=== PATIENT | female | born 1960 | race Caucasian/White ===

== ENCOUNTER → 2016-10-31 16:59 | Outpatient (CLI) | payer MEDICAID ==
[2015-06-20 07:35] VITALS: BMI 35.8
[~2016-10-31 16:59] MED LIST: ARMOUR THYROID PO; ASPIRIN325 MG PO; CELEXA20 MG PO; EC-NAPROSYN500 MG PO; HYDRALAZINE PO; TOPAMAX50 MG PO; ULTRAM50 MG PO
== END | disposition home or self-care (01) ==
LOC: D.MAMMO 13:30
DX: Z12.31 Encounter for screening mammogram for malignant neoplasm of breast (principal)

== ENCOUNTER 2017-03-24 10:45 | Outpatient (CLI) | payer MEDICAID ==
[~2017-03-24] VITALS: Ht 154.9 cm; Wt 81.8 kg
--- NOTE | ~2017-03-24 | OP ---
PATIENT NAME: REENA KULKARNI MEDICAL RECORD: [id number] :56 LOCATION:D.CAT ADMISSION DATE: SURGEON: KAYLA BARRIOS M.D. DATE OF OPERATION: 03/24/2017 REFERRING PHYSICIAN: Jonny Brunner MD PROCEDURES PERFORMED: 1. Selective coronary angiography. 2. Left heart catheterization with ventriculogram. 3. PTCA and stent placed in the LAD. INDICATION: A 56-year-old presents with abnormal stress test revealing anterior wall ischemia. EQUIPMENT USED: Diagnostic 5-Malagasy Mitch catheter. INTERVENTION: A 6-Malagasy XB LAD guide, BMW guidewire, 3.0 x 18 mm Resolute stent. TECHNIQUE: A 6-Malagasy sheath was inserted in retrograde fashion in the right radial artery. Next, selective coronary angiography was performed in standard views using a 5-Malagasy Pawhuska catheter. Left heart catheterization was performed using Pawhuska catheter as well. CORONARY ANATOMY: 1. Left main: Left main trunk is moderate in caliber. It gives rise to the LAD and circumflex. There is no obstruction. 2. LAD: This vessel has been seen in the proximal segment. There is a focal 90% in-stent restenosis seen. 3. Circumflex: This vessel is moderate in caliber. It has a smooth 40% stenosis in the mid segment. 4. Right coronary: This vessel is moderate in caliber and dominant. The mid vessel has been stented. The stent is widely patent. There is no evidence of restenosis. 5. Left ventricle: Left ventricle is normal in size and function. No wall motion abnormalities are seen. Estimated ejection fraction is 55%. DESCRIPTION OF INTERVENTION: A 100 units per kilogram of heparin was infused. A 6-Malagasy XB LAD guide was advanced and engaged in the left main coronary artery. Next, a BMW guide wire was placed in the distal LAD. A 3.0 x 18 mm Resolute stent was placed across the area of restenosis. The stent was then deployed at 12 atmospheres. Injection shows stent to be widely patent with 0% residual stenosis. There is marked improvement in distal flow. There is no compromise of the first diagonal branch. At this point, the wire and guide were removed. IMPRESSION: Successful percutaneous transluminal coronary angioplasty and stent in the LAD with 0% residual stenosis. TRANSINT:[id number] Voice Confirmation ID: [id number] DOCUMENT ID: [id number] OPERATIVE REPORT [id number] REENA KULKARNI TIMOTHY E M.D. CC: [id number] DICTATION DATE: 03/24/17 1346 PHYSICAL THERAPY NURSE: 03/24/172028 DEP CLI 03/24/17 [place] [id number] [place] [id number]
--- NOTE | ~2017-03-24 | HEMODYNAMI ---
PATIENT:REENA KULKARNI MEDICAL RECORD: [id number] : 56 LOCATION:[facility] ADMISSION DATE: 03/24/17 Generatedon:03/24/201713:45 Patient name: REENA KULKARNI Patient #: [id number] SSN: : 1960 Date of study: 03/24/2017 Page: Of Hemodynamic Procedure Report Patient Data Patient Demographics Procedure consent was obtained First Name: REENA Gender: Female Last Name: SHAD : 1960 [facility] Initial: S Age: 56 year(s) Patient #: [id number] Race: Additional ID: [id number] Contact details Address: [address] [place] [address] State: [place] City: [place] Zip code: [address] Past Medical History History of disease Date Diagnosis Comments CAD Allergies: No known allergies Admission Admission Data Admission Date: 03/24/2017 Admission Time: 10:45 Admit Source: Other Lab Results Lab Result Date: 03/24/2017 Lab Result Time: 0:00 Biochemistry Name Units Result Min Max BUN mg/dl 17 --(---*)-- 7 18 Creatinine mg/dl 0.7 --(*---)-- 0.6 1.3 CBC Name Units Result Min Max Hemoglobin g/dl 13.3 -*(----)-- 13.5 17.5 Procedure Procedure Types Cath Procedure Diagnostic Procedure [facility] w/Coronaries PCI Procedure Coronary Stent Initial Miscellaneous Procedures Moderate Sedation up to 15 minutes Procedure Description Procedure Date Procedure Date: 03/24/2017 Procedure Start Time: 13:19 Procedure End Time: 13:43 Procedure Staff Name Function iTm Berrios MD Performing Physician Lucas Luna RT Scrub Leidy Jackson RN Nurse Anita Sage RT Monitor Procedure Data Cath Procedure Fluoroscopy Diagnostic fluoroscopy Total fluoroscopy Time: 6.6 time: 6.6 min min Diagnostic fluoroscopy Total fluoroscopy dose: 248 dose: 248 mGy mGy Contrast Material Contrast Material Type Amount (ml) Isovue 300 107 Entry Location Entry Primary Successful Side Size Upsize Upsize Entry Closure Kruger ccessful Closure Location (Fr) 1 (Fr) 2 (Fr) Remarks Device Remarks Radial Right 6 Fr Mechanical tr band artery Short Compression Estimated blood loss: 10 ml Diagnostic catheters Device Type Used For End Catheter Placement Diagnostic Terumo 5Fr Ventriculography Hudson 110cm catheter Procedure Complications No complications Procedure Medications Medication Administration Route Dosage Oxygen NC 2 l/min Lidocaine 2% added to field 20 Heparin Flush Bag added to field 2 bags (1000units/500ml NS) 0.9% NaCl I.V. 100 ml/hr Versed I.V. 1 mg Fentanyl I.V. 50 mcg Radial Cocktail I.A. 1 syringe (Verapomil 2mg/Nitro 400mcg/Heparin 1500units) Versed I.V. 1 mg Fentanyl I.V. 50 mcg Heparin Bolus I.V. 8000 units Versed I.V. 0.5 mg Hemodynamics Rest HGB: 13.3 (g/dl) Heart Rate: 61 (bpm) Pressure Samples Time Site Value (mmHg) Purpose Heart Use Rate(bpm) 13:24 LV 112/6,19 Snapshot 64 13:24 LV 114/7,21 Snapshot 63 13:25 AO 118/75(92) Pullback 53 Gradients Valve Time Site Site 2 Mean SEP/DFP Peak To Heart Use 1 (mmHg) (sec/min) Peak Rate (mmHg) (bpm) Aortic 13:25 LV AO 20 5 53 118/75(92) Calculations Valve P-P Mean Valve Index Valve Source Name Gradient Area Flow (cm2) Aortic 20 20 Snapshots Pre Cath Intra NCS Post Cath Vital Signs Time Heart Resp SPO2 NIBP (mmHg) Rhythm Pain Sedation Rate (ipm) (%) Status Level (bpm) 12:57:15 55 18 99 133/65(102) NSR 0 (11) 10(A) , No pain 13:01:45 56 16 97 136/68(104) NSR 0 (11) 10(A) , No pain 13:07:23 56 15 100 128/62(100) NSR 0 (11) 10(A) , No pain 13:11:47 57 16 100 130/72(112) NSR 0 (11) 10(A) , No pain 13:16:05 61 16 96 109/61(86) NSR 0 (11) 10(A) , No pain 13:21:13 59 18 95 120/69(104) NSR 0 (11) 9(A) , No pain 13:25:21 131 19 94 106/81(95) NSR 0 (11) 9(A) , No pain 13:29:41 64 17 97 108/53(78) NSR 0 (11) 9(A) , No pain 13:34:03 62 17 98 112/51(81) NSR 0 (11) 9(A) , No pain 13:38:19 61 16 98 94/47(76) NSR 0 (11) 9(A) , No pain 13:42:35 62 17 99 110/53(88) NSR 0 (11) 10(A) , No pain Medications Time Medication Route Dose Verified Delivered Reason Note s Effectiveness by by 13:12:28 Oxygen NC 2 l/min Tim Buffie used for Ciro Jackson RN procedure 13:12:35 Lidocaine 2% added 20ml Tim Tim for local to vial Ciro Berrios MD anesthetic field 13:12:41 Heparin Flush added 2 bags Tim Tim used for Bag to Ciro Berrios MD procedure (1000units/500ml field NS) 13:12:51 0.9% NaCl I.V. 100 Tim Buffie Per physician ml/hr Ciro Jackson RN 13:14:57 Versed I.V. 1 mg Tim Buffie for sedation Ciro Jackson RN 13:15:04 Fentanyl I.V. 50 mcg Tim Buffie for sedation Ciro Jackson RN 13:21:17 Radial Cocktail I.A. 1 Tim Tim for (Verapomil syringe Ciro Berrios MD vasodilation 2mg/Nitro 400mcg/Heparin 1500units) 13:21:26 Versed I.V. 1 mg Tim Buffie for sedation Ciro Jackson RN 13:21:30 Fentanyl I.V. 50 mcg Tim Buffie for sedation Ciro Jackson RN 13:32:30 Heparin Bolus I.V. 8000 Tim Buffie for veri fied units Ciro Jackson RN anticoagulation with dr berrios' 13:35:54 Versed I.V. 0.5 mg Tim Buffie for sedation Ciro Jackson RN Procedure Log Time Note 12:48:26 Admit Source: Other 12:48:51 Diagnostic Cath status Elective 12:48:54 Anita Sage RT(R) sent for patient. Start room use. 12:48:55 Time tracking: Regular hours 12:49:00 Plan of Care:Hemodynamics will remain stable., Cardiac rhythm will remain stable., Comfort level will be maintained., Respiratory function will remain adequate., Patient/ family verbilizes understanding of procedure., Procedure tolerated without complication., Recovers from procedure without complications.. 12:55:43 Patient received from Pre/Post Procedure Room to CCL 3 Alert and oriented. Tansferred to table in Supine position. 12:55:45 Warm blankets applied, and vadim hugger turned on for patient comfort. 12:55:45 Correct patient and procedure confirmed by team. 12:55:47 Signed procedure consent form obtained from patient. 12:55:51 ECG and BP/O2 sat monitors applied to patient. 12:55:55 Vital chart was started 12:56:04 Baseline sample Acquired. 12:56:09 Rhythm: sinus rhythm 12:56:11 Full Disclosure recording started 12:56:12 Baseline sample Acquired. 13:07:05 H&P Date Dictated: 03/24/2017 Within 30 days and on chart., H&P Addendum completed by physician on day of procedure. (MUST COMPLETE FOR ALL OUTPATIENTS). 13:07:07 Pre-procedure instructions explained to patient. 13:07:09 Family in waiting room. 13:07:11 Patient NPO since Midnight. 13:07:24 Patient allergic to No known allergies 13:07:29 Is patient on blood thinner?Yes 13:07:32 ACC The patient was administered the following blood thiners within the last 24 hours: ACCPlavix 13:07:36 Patient diabetic? No. 13:07:40 Snore? Yes 13:07:42 Sleep apnea? No 13:07:54 Dentures? No ? 13:07:55 Dentures? Yes ? 13:08:04 Patient pain scale 0/10 ?. 13:08:12 IV patent on arrival in left forearm with 0.9% NaCl at [facility]. 13:11:21 Lab Result : BUN 17 mg/dl 13:11:21 Lab Result : Hemoglobin 13.3 g/dl 13:11:21 Lab Result : Creatinine 0.7 mg/dl 13:11:25 Lab results completed and on chart. 13:11:31 Right Radial & Right Groin area was prepped with chlora-prep and draped in sterile fashion 13:11:32 Alarms reviewed by Inocencio Velasco 13:11:34 Physician paged 13:11:39 Physician arrived 13:11:40 --------ALL STOP TIME OUT------ 13:11:41 Final Timeout: patient, procedure, and site verified with staff and physician. All members of the team are in agreement. 13:11:43 Right Radial & Right Groin site verified by team. 13:11:48 Physical assessment completed. ASA score P 2 - A patient with mild systemic disease as per Tim Berrios MD. 13:11:52 Sedation plan: IV Moderate Sedation Versed, Fentanyl 13:12:28 Oxygen 2 l/min NC was administered by Leidy Jackson RN; used for procedure; 13:12:35 Lidocaine 2% 20ml vial added to field was administered by Tim Berrios MD; for local anesthetic; 13:12:41 Heparin Flush Bag (1000units/500ml NS) 2 bags added to field was administered by Tim Berrios MD; used for procedure; 13:12:51 0.9% NaCl 100 ml/hr I.V. was administered by Leidy Jackson RN; Per physician; 13:14:57 Versed 1 mg I.V. was administered by Leidy Jackson RN; for sedation; 13:15:04 Fentanyl 50 mcg I.V. was administered by Leidy Jackson RN; for sedation; 13:18:33 Use device set Radial Dx 13:18:34 Acist Syringe opened to sterile field. 13:18:34 Medline Cath Pack opened to sterile field. 13:18:35 Bag Decanter opened to sterile field. 13:18:35 Terumo 6Fr Slender Glidesheath opened to sterile field. 13:18:36 St Afshin 260cm J .035 wire opened to sterile field. 13:18:36 Acist Hand Control opened to sterile field. 13:18:37 Acist Manifold opened to sterile field. 13:18:37 Tegaderm 4 x 4 opened to sterile field. 13:18:41 Procedure started. 13:19:02 Local anesthetic to right radial artery with Lidocaine 2% by Tim Berrios MD.INITIAL ACCESS ONLY 13:19:47 A 6 Fr Short sheath was inserted into the Right Radial artery 13:21:17 Radial Cocktail (Verapomil 2mg/Nitro 400mcg/Heparin 1500units) 1 syringe I.A. was administered by Tim Berrios MD; for vasodilation; 13:21:26 Versed 1 mg I.V. was administered by Leidy Jackson RN; for sedation; 13:21:27 J wire advanced. 13:21:30 Fentanyl 50 mcg I.V. was administered by Leidy Jackson RN; for sedation; 13:22:00 A Diagnostic Terumo 5Fr Hudson 110cm catheter was advanced over the wire and used for Ventriculography. 13:24:16 Terumo ANGLE 260cm glide wire opened to sterile field. 13:25:03 LV gram done using CARPIO 13:25:17 EF : 50 % 13:25:51 LCA angiography performed. 13:27:01 RCA angiography performed. 13:28:02 Catheter removed. 13:30:18 ReTargeter 6FR XBLAD 3.5 guide catheter opened to sterile field. 13:30:19 Elkins BMW Plymouth 2 J-tip 300cm 0.014 guide wir opened to sterile field. 13:30:19 Aurora Feint BasixCompak Inflation Kit opened to sterile field. 13:30:20 High Pressure Extension Tubing (Ciro) opened to sterile field. 13:30:38 Proceeding to intervention. 13:30:53 ACC PCI Site: pLAD has 80% stenosis. 13:31:04 6 Fr XBLAD 3.5 guide catheter was inserted over the wire 13:32:30 Heparin Bolus 8000 units I.V. was administered by Leidy Jackson RN; for anticoagulation; verified with dr berrios' 13:35:54 Versed 0.5 mg I.V. was administered by Leidy Jackson RN; for sedation; 13:39:36 Inflation Number: 1 A Medtronic Resolute 3.0 X 18 stent was prepped and advanced across the Prox LAD. The stent was deployed at 12 MAHAMED for 0:30 (min:sec). 13:40:36 Stent balloon re-inserted over wire. 13:40:57 Terumo TR Band Standard opened to sterile field. 13:41:37 Sheath removed intact; hemostasis achieved with Mechanical Compression to the Right Radial artery. 13:41:40 Procedure ended.(Physican Out) 13:42:07 Fluoroscopy time 06.60 minutes. 13:42:14 Fluoroscopy dose: 248 mGy 13:42:14 Flurop Dose total: 248 13:42:19 Contrast amount:Isovue 300 107ml. 13:42:21 Sharps counted by scrub and verified by R.N. 13:42:26 TR band inflated with 12cc of air. 13:42:29 Insertion/operative site no bleeding no hematoma. 13:42:45 Post right radial artery:stable 13:42:51 Post Procedure Pulses reassessed and unchanged 13:42:56 Post-procedure physical assessment completed. ASA score P 2 - A patient with mild systemic disease as per Tim Berrios MD. 13:43:00 Post procedure rhythm: unchanged. 13:43:03 Estimated blood loss: 10 ml 13:43:05 Post procedure instruction explained to patient.Patient verbalizes understanding. 13:43:12 Procedure type changed to Cath procedure, Diagnostic procedure, LHC, LHC w/Coronaries, PCI procedure, Coronary Stent Initial, Miscellaneous Procedures, Moderate Sedation up to 15 minutes 13:43:13 Procedure and supply charges have been captured, reviewed, submitted and are correct. 13:43:37 Procedure Complication : No complications 13:43:39 Vital chart was stopped 13:43:40 See physician's report for complete and final results. 13:43:42 Report given to Pre/Post Procedure Room. 13:43:45 Patient transfered to Pre/Post Procedure Room with Stretcher. 13:43:50 Procedure ended. 13:43:50 Full Disclosure recording stopped 13:43:55 End room use (Document Last) Intervention Summary Intervention Notes Time ActionType Lesion and Equipment Action# Pressure Duration Attributes Used 13:39:36 Place stent Prox LAD Medtronic 1 12 00:30 Resolute 3.0 X 18 stent Device Usage Item Name Manufacture Quantity Catalog Hospital Part Current Minimal Lot# / Number Charge Number Stock Stock Serial# Code Stephanie Brown 1 62161 [id number] 826019 307130 20 Syringe Medical Systems Inc Medline Cardinal 1 [id number] 665021 26432 631486 5 Cath Pack Health Bag Microtek 1 2001S 507302 83139 042960 5 [employer]. Terumo 6Fr Terumo 1 [id number] 663420 882793 835134 [address] St Afshin 1 290909 187528 416332 330579 30 260cm J .035 wire Acist Hand Acist 1 81243 527171 132252 674537 5 Control Medical Systems Inc Acist Acist 1 23431 303426 694571 411708 5 Manifold Medical Systems Inc Tegaderm 4 3M 1 [id number] 048661 025554 686824 5 x 4 Diagnostic Terumo 1 40-5013 896628 812136 119862 5 Terumo 5Fr Hudson 110cm catheter Terumo Terumo 1 [id number] 435792 413277 194006 5 ANGLE 260cm glide wire Cordis 6FR Cardinal 1 [id number] 609455 170923 620950 10 XBLAD 3.5 Health guide catheter Elkins BMW Elkins 1 [id number] 082742 419405 550840 5 Plymouth 2 Vascular J-tip 300cm 0.014 guide wir Merit Merit 1 [id number] 042443 144860 006880 15 Crowdrally Medical Inflation Kit High Merit 1 [id number] 961359 85730 011196 10 Pressure Medical Extension Tubing (Berrios) Medtronic Medtronic 1 [id number] 676199 847926 6 [id number] Resolute 3.0 X 18 stent Terumo TR Terumo 1 [id number] 788348 752901 316222 40 Band Standard Signature Audit Spencer Stage Time Signature Unsigned Intra-Procedure 03/24/2017 Anita Sage 1:45:40 PM RT(R) Signatures Monitor : Anita Sage Signature : RT Date : Time : [address] [address]
[2017-03-24] MEDS ORDERED: PLAVIX75 MG PO (11:11)
[2017-03-24] MEDS ORDERED: BUSPAR 15 MG TA15 MG PO (11:12)
[2017-03-24] MEDS ORDERED: PRAVACHOL40 MG PO (11:13)
[2017-03-24] MEDS ORDERED: LISINOPRIL-HCTZ1 T11 PO (11:13)
[2017-03-24 11:15] VITALS: BP 125/70; Ht 154.9 cm; Wt 81.8 kg
[2017-03-24 11:24] LABS: BASOPHILS 0.3 % (0-2); EOSINOPHILS 2.1 % (0-7); HEMATOCRIT 39.4 % (36.0-48.0); HEMOGLOBIN 13.3 g/dL (12-16); IMMATURE GRANULOCYTES 0.2 % (0-5); LYMPHOCYTES 27.3 % (15-50); MCH 30.9 pg (26.0-34.0); MCHC 33.8 g/dL (31.0-37.0); MCV 91.6 fL (80.0-100.0); MEAN PLATELET VOLUME 9.9 fL (7.4-10.4); MONOCYTES 7.5 % (2-11); NEUTROPHILS 62.6 % (40-80); PLATELET COUNT 215 10x3/uL (130-400); RDW 12.8 % (11.5-14.5); WBC 6.2 10x3/uL (4.8-10.8)
[2017-03-24 11:40] LABS: CALC OSMOLALITY 279 mosm/kg (275-300); CALCIUM 9.2 mg/dL (8.5-10.1); CARBON DIOXIDE 25.8 mmol/L (21.0-32.0); CHLORIDE - SERUM 103 mmol/L (98-107); CREATININE - SERUM 0.7 mg/dL (0.6-1.3); GLUCOSE 99 mg/dL (74-106); POTASSIUM - SERUM 3.8 mmol/L (3.5-5.1); SODIUM 139 mmol/L (136-145); UREA NITROGEN 17 mg/dL (7-18); eGFR NON AFRICAN AMERICAN > 90 mL/min (90-120)
--- NOTE | 2017-03-24 14:15 | NUR ---
RESTING WITH EYES CLOSED, RIGHT WRIST CDI, NO BLEEDING NOTED
--- NOTE | 2017-03-24 14:45 | NUR ---
NO CHANGES NOTED, TR BAND INTACT
--- NOTE | 2017-03-24 17:40 | NUR ---
2CC AIR OUT OF TR BAND- NO BLEEDING
--- NOTE | 2017-03-24 18:00 | NUR ---
3CC AIR OUT TR BAND- NO BLEEDING
--- NOTE | 2017-03-24 18:45 | NUR ---
TR BAND OFF- BAND AID APPLIED, NO HEMATOMA OR BLEEDING NOTED AT SITE, IV D'C WITH CATH TIP INTACT, WRITTEN AND VERBAL INSTRUCTIONS GIVEN TO PT AND SISTER-VERBAL UNDERSTANDING NOTED.
--- NOTE | 2017-03-24 19:00 | NUR ---
D'C HOME WITH SISTER VIA WC TO PRIVATE CAR. RIGHT WRIST CDI
== END 2017-03-24 19:00 | disposition home or self-care (01) ==
LOC: D.CATH 10:45
PROVIDERS: Internal Medicine Cardiovascular Disease
DX: I25.10 Atherosclerotic heart disease of native coronary artery without angina pectoris (principal); Z95.5 Presence of coronary angioplasty implant and graft; Z86.73 Personal history of transient ischemic attack (TIA), and cerebral infarction without residual deficits; I10 Essential (primary) hypertension

== ENCOUNTER 2018-09-17 14:14 | Emergency (ER) | payer MEDICAID ==
[~2018-09-17] VITALS: Ht 154.9 cm; Wt 74.5 kg
[~2018-09-17 14:14] MED LIST changes: +BUSPAR 15 MG TA15 MG PO; +LISINOPRIL-HCTZ1 T11 PO; +PLAVIX75 MG PO; +PRAVACHOL40 MG PO
[2018-09-17 14:44] VITALS: Ht 154.9 cm; Wt 74.5 kg
[2018-09-17] MEDS ORDERED: NORCO 10-325 TA1 TAB PO (14:46)
[2018-09-17] MEDS ORDERED: TORADOL10 MG PO (18:59)
[2018-09-17] MEDS ORDERED: ROBAXIN500 MG PO (18:59)
[2018-09-17 19:17] VITALS: BP 164/84
== END 2018-09-17 19:17 | disposition home or self-care (01) ==
LOC: D.ER 14:14
DX: M54.12 Radiculopathy, cervical region (principal); M48.32 Traumatic spondylopathy, cervical region; Z86.73 Personal history of transient ischemic attack (TIA), and cerebral infarction without residual deficits; I10 Essential (primary) hypertension

== ENCOUNTER → 2018-09-25 14:25 | Outpatient (CLI) | payer MEDICARE ==
[2018-09-17 14:44] VITALS: BMI 31.0
[~2018-09-25 14:25] MED LIST changes: +NORCO 10-325 TA1 TAB PO; +ROBAXIN500 MG PO; +TORADOL10 MG PO
== END | disposition home or self-care (01) ==
LOC: D.MRI 14:25
DX: M54.12 Radiculopathy, cervical region (principal)

== ENCOUNTER 2019-09-22 11:04 | Outpatient (CLI) | payer MEDICARE, MEDICAID ==
[~2019-09-22] VITALS: Ht 154.9 cm; Wt 81.8 kg
--- NOTE | ~2019-09-22 | HEMODYNAMI ---
PATIENT:REENA KULKARNI MEDICAL RECORD: [id number] : 56 LOCATION:[facility] ADMISSION DATE: 09/22/19 Generatedon:09/22/201916:05 Patient name: REENA KULKARNI Patient #: [id number] SSN: [id number] : 1960 Date of study: 09/22/2019 Page: Of Hemodynamic Procedure Report Patient Data Patient Demographics Procedure consent was obtained First Name: REENA Gender: Female Last Name: SHAD : 1960 Middle Initial: BIPIN Age: 59 year(s) Patient #: [id number] Race: SSN: [id number] Additional ID: [id number] Contact details [address]: [address] [place] [address] State: [place] City: [place] Zip code: [address] Past Medical History History of disease Date Diagnosis Comments CAD Allergies: No known allergies Admission Admission Data Admission Date: 09/22/2019 Admission Time: 11:04 Arrival Date: 09/22/2019 Arrival Time: 14:00 Admit Source: Other Insurance Payor: Medicare [facility] #: [id number] Height (in.): 61.02 BSA: 1.81 (m2) Height (cm.): 155 BMI: 34.13 (kg/m2) Weight (lbs.): 180.78 Weight (kg.): 82 Lab Results Lab Result Date: 09/22/2019 Lab Result Time: 0:00 Biochemistry Name Units Result Min Max BUN mg/dl 15 --(--*-)-- 7 18 Creatinine mg/dl 0.7 --(*---)-- 0.6 1.3 eGFR ml/min 90 --(*---)-- 90 120 NONAFRICAN CBC Name Units Result Min Max Hemoglobin g/dl 14.1 --(*---)-- 13.5 17.5 Procedure Procedure Types Cath Procedure Diagnostic Procedure LHC LHC w/Coronaries Procedure Description Procedure Date Procedure Date: 09/22/2019 Procedure Start Time: 15:43 Procedure End Time: 16:03 Procedure Staff Name Function Tim Tanner MD Performing Physician Salud Rutledge RT Scrub Andrzej Santos RN Nurse Geena Burns RT Monitor Skylar Kaur RT Monitor Indication Angina Procedure Data Cath Procedure Fluoroscopy Diagnostic fluoroscopy Total fluoroscopy Time: 1.7 time: 1.7 min min Diagnostic fluoroscopy Total fluoroscopy dose: 544 dose: 544 mGy mGy Contrast Material Contrast Material Type Amount (ml) Isovue 370 68 Entry Location Entry Primary Successful Side Size Upsize Upsize Entry Closure Succes sful Closure Location (Fr) 1 (Fr) 2 (Fr) Remarks Device Remarks Femoral Right 5 Fr Exoseal artery Estimated blood loss: 5 ml Diagnostic catheters Device Type Used For End Catheter Placement MULTIPACK JL 4.0 5Fr Procedure catheter MULTIPACK 3DRC 5Fr Procedure catheter MULTIPACK Pigtail 5 Fr Procedure catheter Procedure Complications No complications Procedure Medications Medication Administration Route Dosage 0.9% NaCl I.V. 100 ml/hr Oxygen etCO2 Nasal cannula 2 l/min Heparin Flush Bag added to field 2 bags (1000units/500ml NS) Lidocaine 2% added to field 20 Versed I.V. 1 mg Fentanyl I.V. 50 mcg Versed I.V. 0.5 mg Fentanyl I.V. 25 mcg Hemodynamics Rest BSA: 1.81 (m2) HGB: 14.1 (g/dl) O2 Consumption: Estimated: 162.25 (ml/min) O2 Co nsumption indexed: Estimated:89.64 (ml/min/m) Heart Rate: 57 (bpm) Pressure Samples Time Site Value (mmHg) Purpose Heart Use Rate(bpm) 15:54 LV 110/8,9 Snapshot 61 15:55 AO 116/48(78) Pullback 63 15:55 LV 115/-5,8 Pullback 63 Gradients Valve Time Site 1 Site 2 Mean SEP/DFP Peak To Heart Use (mmHg) (sec/min) Peak Rate (mmHg) (bpm) Aortic 15:55 LV AO 0 19 0 63 115/-5,8 116/48(78) Calculations Valve P-P Mean Valve Index Valve Source Name Gradient Area Flow (cm2) Aortic 0 0 0 0 Snapshots Pre Cath Intra NCS Post Cath Vital Signs Time Heart Resp SPO2 etCO2 NIBP (mmHg) Rhythm Pain Sedation Rate (ipm) (%) (mmHg) Status Level (bpm) 15:22:14 56 24 100 0 155/72(109) NSR 0 (11) 10(A) , No pain 15:26:34 56 17 100 22 108/58(77) NSR 0 (11) 10(A) , No pain 15:30:42 60 17 100 34.1 103/58(74) NSR 0 (11) 10(A) , No pain 15:34:50 59 19 99 39.4 106/54(83) NSR 0 (11) 10(A) , No pain 15:38:56 58 11 100 40.9 104/60(76) NSR 0 (11) 10(A) , No pain 15:43:02 58 11 99 40.9 113/59(78) NSR 0 (11) 10(A) , No pain 15:47:13 57 10 100 12.1 111/53(73) NSR 0 (11) 9(A) , No pain 15:51:23 59 18 98 19.7 107/58(93) NSR 0 (11) 9(A) , No pain 15:55:31 62 11 98 38.6 115/61(94) NSR 0 (11) 9(A) , No pain 15:59:41 58 19 97 39.4 118/57(84) NSR 0 (11) 9(A) , No pain 16:03:53 57 11 97 41.7 122/58(87) NSR 0 (11) 9(A) , No pain Medications Time Medication Route Dose Verified Delivered Reason Notes Eff ectiveness by by 15:23:55 0.9% NaCl I.V. 100 Andrzej Andrzej Per ml/hr Danielle Santos physician RN RN 15:24:04 Oxygen etCO2 2 Andrzej Andrzej for low 02 Nasal l/min Lorigan Phyllisigan sats cannula RN RN 15:24:17 Heparin Flush added 2 Andrzej Andrzej used for Bag to bags Phyllisigan Danielle procedure (1000units/500ml field RN RN NS) 15:24:26 Lidocaine 2% added 20ml Andrzej Andrzej for local to vial Lorigan Lorigan anesthetic field RN RN 15:39:13 Versed I.V. 1 mg Andrzej Andrzej for Lorigan Lorigan sedation RN RN 15:39:22 Fentanyl I.V. 50 Andrzej Andrzej for mcg Lorigan Lorigan sedation RN RN 15:45:22 Versed I.V. 0.5 Andrzej Andrzej for mg Lorigan Lorigan sedation RN RN 15:45:28 Fentanyl I.V. 25 Andrzej Andrzej for mcg Lorigan Lorigan sedation RN binder layer Log Time Note 14:43:51 Diagnostic Cath Status : Elective 14:44:05 Indication : Angina 14:44:40 Informed consent obtained and on chart 14:45:59 Admit Source: Other 14:46:05 Arrival Date: 09/22/2019 2:00:00 PM 14:46:23 Insurance Payor : Medicare 14:47:36 Patient Weight : 180.78 lbs 14:47:40 Patient Height : 61.02 inches 14:48:47 Lab Result : BUN 15 mg/dl 14:48:47 Lab Result : Hemoglobin 14.1 g/dl 14:48:47 Lab Result : eGFR NONAFRICAN 90 ml/min 14:48:47 Lab Result : Creatinine 0.7 mg/dl 14:50:36 Maximum allowable contrast dose (3.7 X eGFR X 0.75)249 ml. 14:50:39 1) 90+ Normal kidney functon but urine findings or structural abnormalities or genetic trait point to kidney disease. 14:50:44 Risk of Mortality: 0.1 14:50:48 Risk of blood transfusion: 0.1 14:50:52 Risk of GRECIA: 0.2 14:59:31 Procedure Status Elective Heart Cath (OP). 14:59:32 Time tracking: Regular hours (M-F 7:00 - 5:00) 14:59:35 Plan of Care:Hemodynamics will remain stable., Cardiac rhythm will remain stable., Comfort level will be maintained., Respiratory function will remain adequate., Patient/ family verbilizes understanding of procedure., Procedure tolerated without complication., Recovers from procedure without complications.. 15:01:23 H&P Date Dictated: 09/15/2019 Within 30 days and on chart., H&P Addendum completed by physician on day of procedure. (MUST COMPLETE FOR ALL OUTPATIENTS). 15:01:28 Patient allergic to No known allergies 15:06:07 Salud VO(R) (CV) sent for patient. Start room use. 15:13:22 Patient received from Pre/Post Procedure Room to CCL 2 Alert and oriented. Tansferred to table in Supine position. 15:13:23 Warm blankets applied, and vadim hugger turned on for patient comfort. 15::23 Correct patient and procedure confirmed by team. 15::23 ECG and BP/O2 sat monitors applied to patient. 15:19:06 Pre-procedure instructions explained to patient. 15:19:06 Pre-procedure instructions explained to patient. 15:19:07 Pre-op teaching completed and patient verbalized understanding. 15:19:15 Family unavailable. 15:19:18 Patient NPO since Midnight. 15:19:21 Is the patient allergic to Iodine/contrast media? No. 15:19:23 Was the patient premedicated? Yes 15:19:25 Is patient on blood thinner?Yes 15:19:29 ACC The patient was administered the following blood thiners within the last 24 hours: ACCPlavix 15:19:36 Patient diabetic? No. 15:19:39 Patient not . Patient is over age 55. 15:19:40 ----Pre-sedation anethsthesia assessment.---- 15:19:44 Previous problem with sedation/anesthesia? No ? 15:19:45 Snore? Yes 15:19:47 Sleep apnea? No 15:19:48 Deviated septum? No 15:19:50 Opens mouth fully? Yes 15:19:51 Sticks out tongue? Yes 15:19:53 Airway obstruction? No ? 15:19:58 Dentures? Yes in tight 15:20:44 Pre procedure: right ulnar pulse 2+ Normal; easily identifiable; not easily obliterated 15:20:50 Patient pain scale 0/10 ?. 15:20:58 IV patent on arrival in left antecubital with 0.9% NaCl at KVO. 15:21:03 Vital chart was started 15:21:12 Lab results completed and on chart. 15:21:18 Stress Test: no; N/A ? 15:21:19 Alarms reviewed by R. N. 15:21:20 Sharps counted by scrub and verified by R.N. 15:21:30 Baseline sample Acquired. 15:21:33 Rhythm: sinus rhythm 15:21:41 Full Disclosure recording started 15:21:57 Use device set Radial Dx or PCI 15:21:59 ACIST Syringe (50450) opened to sterile field. 15:22:00 Medline Cath Pack ([id number]) opened to sterile field. 15:22:00 Bag Decanter (2002S) opened to sterile field. 15:22:01 ACIST Hand Control (96300) opened to sterile field. 15:22:02 ACIST Manifold (18351) opened to sterile field. 15:22:03 MBrace Wrist Support ([id number]) opened to sterile field. 15:22:06 EMERALD Guide Wire (516-907) opened to sterile field. 15:23:55 0.9% NaCl 100 ml/hr I.V. was administered by Andrzej Santos RN; Per physician; Verbal order read back and verified. 15:24:04 Oxygen 2 l/min etCO2 Nasal cannula was administered by Andrzej Santos RN; for low 02 sats; Verbal order read back and verified. 15:24:17 Heparin Flush Bag (1000units/500ml NS) 2 bags added to field was administered by Andrzej Santos RN; used for procedure; Verbal order read back and verified. 15:24:26 Lidocaine 2% 20ml vial added to field was administered by Andrzej Santos RN; for local anesthetic; Verbal order read back and verified. 15:25:42 Right Radial & Right Groin area was prepped with chlora-prep and draped in sterile fashion 15:25:45 Right groin area was prepped PER Dr. Tanner with chlora-prep and draped in sterile fashion 15:27:11 Use device set Multipack Set 15:27:17 DIAGNOSTIC Multipack 5Fr catheter set ([id number]) opened to sterile field. 15:27:40 SHEATH 5FR [place] (VRL965) opened to sterile field. 15:38:32 --------ALL STOP TIME OUT------ 15:38:32 Final Timeout: patient, procedure, and site verified with staff and physician. All members of the team are in agreement. 15:38:33 Final Timeout: patient, procedure, and site verified with staff and physician. All members of the team are in agreement. 15:38:34 Right groin site verified by team. 15:38:39 Fire Safety Assessment: A--An alcohol-based skin anteseptic being used preoperatively., C--Open oxygen or nitrous oxide is being used., D--An ESU, laser, or fiber-optic light is being used. 15:38:46 Physical assessment completed. ASA score P 2 - A patient with mild systemic disease as per Tim Tanner MD. 15:38:59 Sedation plan: IV Moderate Sedation Medication:Versed, Fentanyl 15:39:13 Versed 1 mg I.V. was administered by Andrzej Santos RN; for sedation; Verbal order read back and verified. 15:39:22 Fentanyl 50 mcg I.V. was administered by Andrzej Santos RN; for sedation; Verbal order read back and verified. 15:43:03 Procedure started. 15:43:10 Local anesthetic to right femoral artery with Lidocaine 2% by Tim Tanner MD.INITIAL ACCESS ONLY 15:44:34 A 5 Fr sheath was inserted into the Right Femoral artery 15:45:22 Versed 0.5 mg I.V. was administered by Andrzej Santos RN; for sedation; Verbal order read back and verified. 15:45:28 Fentanyl 25 mcg I.V. was administered by Andrzej Santos RN; for sedation; Verbal order read back and verified. 15:46:23 A MULTIPACK JL 4.0 5Fr catheter was advanced over the wire and used for Procedure. 15:46:29 LCA angiography performed. 15:51:05 Catheter exchanged over wire. 15:51:25 A MULTIPACK 3DRC 5Fr catheter was advanced over the wire and used for Procedure. 15:52:06 RCA angiography performed. 15:52:14 ACCDominant side:Right 15:54:00 A MULTIPACK Pigtail 5 Fr catheter was advanced over the wire and used for Procedure. 15:54:31 Injector settings: Ml/sec: 5, Volume: 15, 15:54:34 LV gram done using CARPIO 15:54:35 LV hemodynamics recorded. 15:54:41 EF : 60 % 15:56:11 Catheter removed. 15:56:45 EXOSEAL 5Fr (EX500) opened to sterile field. 15:57:04 Sheath removed intact; hemostasis achieved with Exoseal to the Right Femoral artery. 15:57:06 Procedure ended.(Physican Out) 15:57:25 Fluoroscopy time 01.70 minutes. 15:57:29 Flurop Dose total: 544 15:57:29 Fluoroscopy dose: 544 mGy 15:57:35 Dose Area Product 39565 mGy/cm. 15:57:40 Contrast amount:Isovue 370 68ml. 15:57:43 Maximum allowable dose exceeded? No. 15:57:45 Sharps counted by scrub and verified by R.N. 15:57:51 Post-op/insertion site Right Femoral artery dressed using a 4 x 4 and Tegaderm. 15:57:56 Post right femoral artery:stable, soft, clean and dry 15:57:58 Post Procedure Pulses reassessed and unchanged 15:58:01 Post procedure: right dorsailis pedis pulse 2+ Normal; easily identifiable; not easily obliterated. 15:58:06 Post-procedure physical assessment completed. ASA score P 2 - A patient with mild systemic disease as per Tim Tanner MD. 15:58:11 Post procedure rhythm: unchanged. 15:58:15 Estimated blood loss: 5 ml 15:58:23 Post procedure instruction explained to patient.Patient verbalizes understanding. 15:58:29 Patient needs reinforcement of post procedure teaching. 15:58:40 Procedure Complication : No complications 15:58:45 [facility] Findings: MVD- MD will discuss options w/ pt 15:58:48 Operative report dictated upon procedure completion. 15:58:48 See physician's report for complete and final results. 16:00:05 Procedure and supply charges have been captured, reviewed, submitted and are correct. 16:00:11 Report given to Pre/Post Procedure Room. 16:00:19 Patient transfered to Pre/Post Procedure Room with Stretcher. 16:03:01 Vital chart was stopped 16:03:05 Procedure ended. 16:03:05 Full Disclosure recording stopped 16:03:33 End room use (Document Last) 16:03:46 End room use (Document Last) 16:04:53 End room use (Document Last) Device Usage Item Name Manufacture Quantity Catalog Hospital Part Current Minimal Lot# / Number Charge Number Stock Stock Serial# Code ACIST Acist 1 62503 579350 407943 992894 20 Syringe GuestShots (05999) Systems Inc Medline Medline 1 [id number] 424468 88666 737086 5 Cath Pack ([id number]) Bag Microtek 1 017839 60125 660492 5 Decanter Medical Inc. () ACIST Hand Acist 1 27972 698840 075371 788282 5 Control Medical (33613) Systems Inc ACIST Acist 1 33996 267717 592984 318432 5 Manifold Medical (59523) Systems Inc MBrace Advanced 1 140-0250-00 309746 93139 441074 5 Wrist Vascular Support Dynamics ([id number]) EMERALD Cardinal 1 502-223 839189 058458 392288 5 Guide Wire Health (502-412) DIAGNOSTIC Cardinal 1 XN9968 748917 59462 830680 30 Multipack Health 5Fr catheter set (US1449) SHEATH 5FR Terumo 1 EQI332 978910 907098 404285 5 [place] (UCU324) MULTIPACK Cardinal 1 006812 5 JL 4.0 5Fr Health catheter MULTIPACK Cardinal 1 540635 5 3DRC 5Fr Health catheter MULTIPACK Cardinal 1 807519 5 Pigtail 5 Health Fr catheter EXOSEAL 5Fr Cardinal 1 EX500 210487 383310 622893 10 (EX500) Health Signature Audit [place] Stage Time Signature Unsigned Intra-Procedure 09/22/2019 Skylar Kaur 4:03:46 PM RT(R) Intra-Procedure 09/22/2019 Andrzej 4:04:53 PM Danielle RN Intra-Procedure 09/22/2019 Tim Tanner MD 4:05:22 PM Signatures Performing Physician : Signature : Tim Tanner MD Date : Time : Nurse : Andrzej Santos Signature : RN Date : Time : Monitor : Geena Burns Signature : RT Date : Time : Monitor : Skylar Young Signature : RT Date : Time : [address] [place] [address]
[2019-09-22] MEDS ORDERED: ISOSORBIDE MONO30 M1 PO (11:40)
[2019-09-22 11:55] VITALS: BP 102/57; Ht 154.9 cm; Wt 81.8 kg
[2019-09-22 12:00] LABS: BASOPHILS 0.5 % (0-2); EOSINOPHILS 1.6 % (0-7); HEMATOCRIT 40.7 % (36.0-48.0); HEMOGLOBIN 14.1 g/dL (12-16); IMMATURE GRANULOCYTES 0.2 % (0-5); LYMPHOCYTES 25.3 % (15-50); MCH 32.6 pg (26.0-34.0); MCHC 34.6 g/dL (31.0-37.0); MEAN PLATELET VOLUME 9.4 fL (7.4-10.4); MONOCYTES 6.4 % (2-11); PLATELET COUNT 218 10x3/uL (130-400); RBC 4.33 10x6/uL (4.00-5.40); RDW 12.3 % (11.5-14.5); WBC 5.6 10x3/uL (4.8-10.8)
[2019-09-22 12:16] LABS: ALT (SGPT) 18 U/L (10-68); CALC OSMOLALITY 282 mosm/kg (275-300); CALCIUM 9.3 mg/dL (8.5-10.1); CARBON DIOXIDE 29.1 mmol/L (21.0-32.0); CHLORIDE - SERUM 106 mmol/L (98-107); CHOL - HDL RATIO 3.6 ratio (2.3-4.1); CHOLESTEROL, TOTAL 214 mg/dL (0-200); CREATININE - SERUM 0.7 mg/dL (0.6-1.3); GLUCOSE 88 mg/dL (74-106); HDL CHOLESTEROL 60 mg/dL (32-96); LDL CHOLESTEROL 139 mg/dL (0-100); LDL-HDL RATIO 2.3 ratio (1.5-3.5); POTASSIUM - SERUM 3.5 mmol/L (3.5-5.1); SODIUM 142 mmol/L (136-145); TRIGLYCERIDE 78 mg/dL (30-200); UREA NITROGEN 15 mg/dL (7-18); eGFR NON AFRICAN AMERICAN 90 mL/min (90-120)
--- NOTE | 2019-09-22 16:15 | NUR ---
REC TO ROOM VIA STRETCHER, MONITORING INITIATED. R GROIN SOFT, CDI. NO BLEEDING/HEMATOMA. PPP. INSTR TO KEEP RLE STILL.
--- NOTE | 2019-09-22 16:25 | NUR ---
DTR RISHI MATHEW HERE, SPOKE W DR BARRIOS VIA PHONE.
--- NOTE | 2019-09-22 16:30 | NUR ---
R GROIN CDI, SOFT. NO BLEEDING/HEMATOMA. PPP. VSS, NSR HR 83, NIBP 119/77, RR 16 SAT 95% ON 2LNC. CONT TO MONITOR.
--- NOTE | 2019-09-22 16:45 | NUR ---
R GROIN CDI, SOFT. NO BLEEDING/HEMATOMA. PPP.
--- NOTE | 2019-09-22 17:00 | NUR ---
R GROIN CDI, SOFT. NO BLEEDING OR HEMATOMA. PPP. DENIES NEEDS.
--- NOTE | 2019-09-22 17:30 | NUR ---
HOB UP 30*, R GROIN CDI, SOFT, NO BLEEDING/HEMATOMA. PPP. NSR, 66. BP 130/62. RA SAT 97%. CONT TO MONITOR.
--- NOTE | 2019-09-22 17:43 | NUR ---
R GROIN CDI, NO BLEEDING/HEMATOMA. PPP. TOLERATING SANDWICH AND ICECREAM, NO COMPLAINTS. DTR AT BEDSIDE.
--- NOTE | 2019-09-22 18:00 | NUR ---
R GROIN CDI, SOFT. NO BLEEDING/HEMATOMA. IV DC, MONITORING DISCONTINUED. PT DRESSING W DTR ASSISTANCE.
--- NOTE | 2019-09-22 18:10 | NUR ---
DC TEACHING DONE W PT AND DTR. PT HAS ALL BELONGINGS.
--- NOTE | 2019-09-22 18:20 | NUR ---
DC HOME W DTR VIA WHEELCHAIR TO PRIVATE CAR.
== END 2019-09-22 18:20 | disposition home or self-care (01) ==
LOC: D.CATH 11:04
PROVIDERS: ATTEND Internal Medicine Cardiovascular Disease
DX: I25.110 Atherosclerotic heart disease of native coronary artery with unstable angina pectoris (principal); I25.2 Old myocardial infarction; E78.5 Hyperlipidemia, unspecified; I10 Essential (primary) hypertension; I65.29 Occlusion and stenosis of unspecified carotid artery

== ENCOUNTER 2019-10-12 08:57 | Inpatient (IN) | payer MEDICARE, MEDICAID ==
[~2019-10-12] VITALS: Ht 154.9 cm; Wt 84.5 kg
--- NOTE | ~2019-10-12 | TEE ---
PATIENT:REENA KULKARNI MEDICAL RECORD: [id number] LOCATION:[place] [address] AGE OF PATIENT: 59 ADMISSION DATE: 10/14/19 SEX: F REFERRING PHYSICIAN: INTERPRETING PHYSICIAN: DARRYL SMITH MD TRANSESOPHAGEAL ECHOCARDIOGRAM Date: 10/14/19 АНДРЕЙ CHARGE Y INDICATIONS: CABG PREMEDICATIONS: PATIENT'S RESPONSE PROCEDURE DOPPLER MEASUREMENTS: LVIT LA PA RA LVOT RVOT Asc. Ao AV Gradient Peak AV Mean AV Area MV Gradient Peak MV Mean MV Area INTERPRETATION: Doppler: 2-D: COLOR FLOW DOPPLER NORMAL SALINE STUDY: MISCELLANOUS: DIAGNOSIS: PLAN: Grill Cook:1 Dr. Smith Administrative Operations Coordinator: Sukhjinder DINH COMMENTS: GARNICA/BARRIOS PATIENT DATE OF SERVICE: 10/14/2019 DATE OF SERVICE: 10/14/2019 PROCEDURE: Transesophageal echo evaluation of valvular structures during bypass surgery. FINDINGS: 1. Left ventricular chamber size is within normal limits. Left ventricular TRANSESOPHAGEAL ECHOCARDIOGRAM REPORT [id number] REENA KULKARNI systolic function is normal. Overall ejection fraction estimated at 55% to 60%. 2. Left atrium, right atrium, and right ventricular chamber sizes are within normal limits. 3. Valvular structures have normal structure and motion. 4. Doppler interrogation only reveals trace mitral regurgitation, trace aortic insufficiency. No other valvular insufficiency or stenosis. 5. No evidence of pericardial effusion or left ventricular thrombus. TRANSINT:[id number] Voice Confirmation ID: [id number] DOCUMENT ID: [id number] DARRYL SMITH MD CC: [id number] DICTATION DATE: 10/15/19 1423 AUTOMOTIVE PROJECT ENGINEER: 10/16/19 0806 ADM IN [place] [address] [place] [address]
[~2019-10-12 08:57] MED LIST changes: +ISOSORBIDE MONO30 M1 PO
[2019-10-12 10:09] LABS: BASOPHILS 0.3 % (0-2); EOSINOPHILS 1.9 % (0-7); HEMATOCRIT 40.1 % (36.0-48.0); HEMOGLOBIN 13.3 g/dL (12-16); IMMATURE GRANULOCYTES 0.2 % (0-5); LYMPHOCYTES 23.4 % (15-50); MCH 31.2 pg (26.0-34.0); MCHC 33.2 g/dL (31.0-37.0); MCV 94.1 fL (80.0-100.0); MEAN PLATELET VOLUME 9.6 fL (7.4-10.4); MONOCYTES 7.7 % (2-11); NEUTROPHILS 66.5 % (40-80); PLATELET COUNT 232 10x3/uL (130-400); RBC 4.26 10x6/uL (4.00-5.40); RDW 12.4 % (11.5-14.5); WBC 5.8 10x3/uL (4.8-10.8)
[2019-10-12] MEDS ORDERED: CELEXA20 MG PO (10:11)
[2019-10-12 10:16] LABS: INR 0.98 (0.85-1.17); PROTIME 12.5 SECONDS (11.6-15.0)
[2019-10-12 10:17] LABS: APTT 26.1 SECONDS (22.8-39.4)
[2019-10-12 10:34] LABS: ALKALINE PHOSPHATASE 62 U/L (46-116); ALT (SGPT) 17 U/L (10-68); BILIRUBIN - TOTAL 0.39 mg/dL (0.2-1.3); CALC OSMOLALITY 280 mosm/kg (275-300); CALCIUM 9.3 mg/dL (8.5-10.1); CARBON DIOXIDE 33.9 mmol/L (21.0-32.0); CHLORIDE - SERUM 105 mmol/L (98-107); CHOLESTEROL, TOTAL 209 mg/dL (0-200); CREATININE - SERUM 0.6 mg/dL (0.6-1.3); GLUCOSE 86 mg/dL (74-106); PHOSPHOROUS 3.3 mg/dL (2.5-4.9); POTASSIUM - SERUM 3.8 mmol/L (3.5-5.1); PROTEIN - SERUM 7.2 g/dL (6.4-8.2); SODIUM 142 mmol/L (136-145); T4 THYROXIN - FREE 1.02 ng/dL (0.76-1.46); THYROID STIMULATING HORMONE 1.94 uIU/mL (0.36-3.74); UREA NITROGEN 11 mg/dL (7-18); URIC ACID 3.9 mg/dL (2.6-7.2); eGFR NON AFRICAN AMERICAN > 90 mL/min (90-120)
[2019-10-12 10:46] LABS: APPEARANCE HAZY (CLEAR); BACTERIA MODERATE /hpf (NEGATIVE); BILIRUBIN NEGATIVE (NEGATIVE); COLOR YELLOW (YELLOW); EPITHELIAL CELLS 0-5 /hpf (0-5); GLUCOSE NEGATIVE (NEGATIVE); KETONE NEGATIVE (NEGATIVE); MUCUS <1+ /lpf (NONE SEEN); NITRITE NEGATIVE (NEGATIVE); PROTEIN NEGATIVE (NEGATIVE); RED CELLS - URINE 0-5 /hpf (0-5); UROBILINOGEN NORMAL (NORMAL)
[2019-10-14] VITALS (43 sets, daily range): BP systolic 102–142; BP diastolic 54–70; BMI 34.2
[2019-10-14 09:05] LABS: APPEARANCE CLEAR (CLEAR); BILIRUBIN NEGATIVE (NEGATIVE); COLOR YELLOW (YELLOW); GLUCOSE NEGATIVE (NEGATIVE); KETONE NEGATIVE (NEGATIVE); NITRITE NEGATIVE (NEGATIVE); PROTEIN NEGATIVE (NEGATIVE); UROBILINOGEN NORMAL (NORMAL)
[2019-10-14 09:06] LABS: BACTERIA FEW /hpf (NEGATIVE); EPITHELIAL CELLS RARE /hpf (0-5); RED CELLS - URINE OCC /hpf (0-5); WHITE CELLS - URINE RARE /hpf (NEGATIVE)
--- NOTE | 2019-10-14 14:15 | NUR ---
PT ARRIVED TO CVICU WITH OR TEAM SEDATED ON THE VENT. PT HAS 2 SUBSTERNAL CHEST TUBES THAT ARE HOOKED TO SUCTION @ 20 CM. SUBSTERNAL JOSEPH DRAIN FULL WITH 60 CC IN IT DRAINED AND COMPRESSED. PT HAS ANT AND POST PACER WIRES HOOKED WITH PACE MAKER OFF. PT HAS BREWER IN PLACE. PT TEMP IS 35.7 UPPON ARRIVAL WARM BLAKET IS APPLIED. PT HAS CODIS IN THE RT IJ THE FLUIDS AND MEDS INFUSING. PT IS HOOKED TO ICU MONITORS AND VENT. RT LEG IS DRESSED WITH COBAN THAT IS CDI. WILL CONTINUE TO MONITOR PT BY BEDSIDE.
--- NOTE | 2019-10-14 17:39 | NUR ---
NOTIFIED ABOUT LABS NEW ORDERS RECIVED. WILL CONTINUE TO MONITOR.
--- NOTE | 2019-10-14 17:46 | NUR ---
NOTIFIED OF LABS NEW ORDERS RECIVED. WILL CONTINUE TO MONITOR.
--- NOTE | 2019-10-14 18:23 | NUR ---
NOTIFIED ABOUT LABS AND UPDATE ON PT. NEW ORDERS RECIVED. WILL CONTINUE TO MONITOR.
--- NOTE | 2019-10-14 19:34 | NUR ---
NOTIFIED OF 1923 ABG'S WITH CRITICAL IONIZED CALCIUM, ALSO NOTIFIED NIF & VITAL, ORDERS RECEIVED FROM ; "REPEAT THE ABG'S FOR THE Ca DOESNT MAKE SENSE. HAS BEEN NORMAL ON x3 ABG." "YES TO EXTUBATE"." ALSO GIVE ANOTHER 20KCL IV OVER 1 HOUR." NO FURTHER AT THIS TIME WILL CONTINUE TO ASSESS, VSS, NSR ON CM
--- NOTE | 2019-10-14 19:50 | NUR ---
PT EXTUBATED PER ORDERS BY RESPIRATORY THERAPIST SHARI, PT TOLLERATED EXTUBATION WITH NO ACUTE S/S OF DISTRESS, VSS, NSR ON CM, ORAL CARE PROVIDED, PT PLACED ON 5 L/MIN VIA NC, PT DENIES DIFFICULTY BREATHING, C/O LEFT LATERAL CHEST/RIB DISCOMFORT, PRN PAIN MED GIVEN PER MAR/ORDERS, VSS, PO ICE CHIPS GIVEN PER REQUEST, CALL LIGHT IN REACH, BED ALARM ON, REPOSITIONED FOR COMFORT, FALL PREVENTION AND UNIT ORIENTATION TEACHING PROVIDED, I/S COMPLETED [id number] MUCH ENCOURAGEMENT NEEDED, COUGH AND DEEP BREATHING DONE, WEAK NON-PRODUCTIVE COUGH NOTED, NO FURTHER AT THIS TIME, WILL CONTINUE TO MONITOR
--- NOTE | 2019-10-14 20:09 | NUR ---
NOTIFIED OF REPEAT ABG RESULTS, ASKED IF HE WOULD LIKE IONIZED CALCIUM TREATED PER PROTOCOL, STATED "DO NOT TREAT Ca." ALSO DISCUSSED WITH TO CLERIFY HYDRALAZINE PRN ORDER; IF WE NEED TO TREAT ELEVATED SBP WITH PRN HYDRALAZINE OR WITH NITRO & CLEVIPREX, DR. GARNICA REPLIED " USE HYDRALAZINE IF YOU CANT KEEP BELOW SBP 140 WITH IV MEDICATION.", UPDATE GIVEN ON CURRENT V/S, ORDERS RECEIVED; "GIVE LOPRESSOR 12.5mg PO NOW." INFORMED ABOUT PT RECENTLY BEING EXTUBATED @ 1950 AND WORKING WITH PT ON PO FLUID INTAKE WITH ICE CHIPS AND SIPS ICE H2O, PT STATED " PAST STROKE ON LEFT SIDE CAUSED SLIGHT DIFFICULTY SWALLOWING." PT THEN STATED " I AM ABLE TO TAKE PILLS, BUT JUST HAVE TO TAKE IT SLOW." NO FURTHER AT THIS TIME WILL CONTINUE TO MONITOR
--- NOTE | 2019-10-14 20:15 | NUR ---
DAUGHTER AND GRANDAUGHTER AT BEDSIDE, UPDATED GIVEN ON PT, QUESTIONS ANSWERED, SECURITY CALL PASSWORD ESTABLISHED WITH DAUGHTER AND PT, PT AAOx4, VSS, WILL CONTINUE TO MONITOR
--- NOTE | 2019-10-14 23:00 | NUR ---
REASSESSMENT COMPLETE PER FLOW SHEET, PT SLEEPING PRIOR TO ASESSMENT, WAKES EASY WITH MINIMAL STIMULI, AAOx4, C/O INCISIONAL AND LECT LATERAL CHEST DISCOMFORT, REPOSITIONED IN BED FOR COMFORT, MEDS GIVEN PER MAR/ORDERS, I/S COMPLETED [id number] ENCOURAGEMENT NEEDED D/T DICOMFORT WITH MOVEMENT, TCDB DONE WEAK COUGH NOTED, ALL DRSG'S C/D/I, VSS, NSR ON CM, NO ACUTE S/S OF DISTRESS NOTED, CTx2 TO 20cm SUCTION NO AIR LEAK, SUBSTERNAL JOSEPH DRAIN COMPRESSED, BLOODY DRAINAGE NOTED IN CT'S AND JOSEPH DRAIN, TPM WIRE x2 CONNECTED TO EXTERNAL PACEMAKER, PACEMAKER NOT TURNED ON, LARGE CUP ICE WATER GIVEN PER REQUEST, NO SWALLOWING DIFFICULTY, CALL LIGHT IN REACH, BED ALARM ON, WILL CONTINUE TO MONITOR
[2019-10-15] VITALS (45 sets, daily range): BP systolic 109–142; BP diastolic 42–75; Ht 154.9 cm; Wt 84.5 kg
--- NOTE | 2019-10-15 | NUR ---
PT RESTING WITH EYES CLOSED AT THIS TIME, NO ACUTE S/S OF DISTRESS OR DISCOMFORT NOTED, VSS, NSR ON CM, WILL CONTINUE TO MONITOR
--- NOTE | 2019-10-15 00:45 | NUR ---
PT C/O ACHING SHARP INCISIONAL/LEFT LATERAL CHEST DISCOMFORT RATED 7/10 ON NUMERIC PAIN SCALE, PRN PAIN MED GIVEN PER MAR/ORDERS, VSS, NSR ON CM, PT AAOx4, CUP ICE WATER GIVEN PER REQUEST, REPOSITIONED IN BED FOR COMFORT, WILL CONTINUE TO MONITOR
--- NOTE | 2019-10-15 00:50 | NUR ---
RNx3 AT BEDSIDE, PT REPOSITIONED TO BEDSIDE AND DANGLED PER ORDERS, PT TOLLERATED DANGLING WIOTH NO ACUTE DISTRESS NOTED, I/S COMPLETED WHILE DANGLING [id number] ENCOURAGEMENT NEEDED, NON-PRODUCTIVE COUGH AND AND DEEP BREATH DONE, VSS, NSR ON CM, PARTIAL BATH COMPLETED, PT AND LINES/TUBES REPOSITIONED IN BED, LARGE CUP ICE WATER GIVEN PER REQUEST, NO SWALLOWING DIFFICULTY NOTED, ART LINE AND CVP ZEROED ON CM, GOOD WAVEFORM NOTED ON CM, CALL LIGHT IN REACH, BED ALARM ON, WILL CONTINUE TO MONITOR
--- NOTE | 2019-10-15 03:00 | NUR ---
REASSESSMENT COMPLETE PER FLOW SHEET, NO ACUTE CHANGES FROM PRIOR ASSESSMENT, PT RESTING WITH EYES CLOSED, WAKES TO VERBAL STEMULI AAOx4, DENIES PAIN OR NEEDS AT THIS TIME, VSS, NSR ON CM, I/S COMPLETED 500-750ML x10, TCDB DONE, CALL LIGHT IN REACH, BED ALARM ON, DRINK OF ICE H20 GIVEN PER REQUEST, WILL CONTINUE TO MONITOR
--- NOTE | 2019-10-15 05:00 | NUR ---
UNABLE TO WEIGH PT IN BED AT THIS TIME, BED NOT ZEROED PRIOR TO PT ARRIVAL TO CVICU DURING DAY SHIFT
--- NOTE | 2019-10-15 06:00 | NUR ---
CHG BED BATH COMPLETED, GOWN REPLACED NO YELLOW GOWNS ON CVICU AT THIS TIME, PT REPOSITIONED WITH RNx3 TO BEDSIDE CHAIR, PT AMBULATED WITH MODERATE ASSIST TO CHAIR, LINES AND PT REPOSITIONED FOR COMFORT, ART-LINE & CVP LINE ZEROED ON CM, GOOD WAVEFORM NOTED, VSS, NSR ON CM, PT DENIES PAIN OR NEEDS AT THIS TIME, CALL LIGHT IN REACH, WILL CONTINUE TO MONITOR
[2019-10-15 06:10] LABS: HEMATOCRIT 29.7 % (36.0-48.0); MCH 31.2 pg (26.0-34.0); MCHC 33.7 g/dL (31.0-37.0); MCV 92.5 fL (80.0-100.0); MEAN PLATELET VOLUME 9.3 fL (7.4-10.4); RBC 3.21 10x6/uL (4.00-5.40); RDW 12.7 % (11.5-14.5); WBC 9.6 10x3/uL (4.8-10.8)
[2019-10-15 06:30] LABS: ALBUMIN 3.1 g/dL (3.4-5.0); ALKALINE PHOSPHATASE 40 U/L (46-116); ALT (SGPT) 15 U/L (10-68); BILIRUBIN - TOTAL 0.18 mg/dL (0.2-1.3); CALC OSMOLALITY 285 mosm/kg (275-300); CALCIUM 7.3 mg/dL (8.5-10.1); CARBON DIOXIDE 26.1 mmol/L (21.0-32.0); CHLORIDE - SERUM 109 mmol/L (98-107); CREATININE - SERUM 0.7 mg/dL (0.6-1.3); GLUCOSE 135 mg/dL (74-106); MAGNESIUM - SERUM 2.3 mg/dL (1.8-2.4); PHOSPHOROUS 2.9 mg/dL (2.5-4.9); POTASSIUM - SERUM 4.5 mmol/L (3.5-5.1); PROTEIN - SERUM 5.6 g/dL (6.4-8.2); SODIUM 143 mmol/L (136-145); UREA NITROGEN 11 mg/dL (7-18); eGFR NON AFRICAN AMERICAN 90 mL/min (90-120)
--- NOTE | 2019-10-15 07:49 | OP ---
PATIENT NAME: REENA KULKARNI MEDICAL RECORD: [id number] :56 LOCATION:D.CVI D.CV03 ADMISSION DATE:10/14/19 SURGEON: SIDDHARTH GARNICA MD DATE OF OPERATION: 10/14/2019 SURGEON: Siddharth Garnica MD HAND STONE POLISHER: None. PROCEDURE PERFORMED: 1. Coronary artery bypass graft times 4 (left internal mammary to LAD, reverse saphenous vein graft from aorta to first diagonal, aorta to first obtuse marginal, aorta to the posterior descending artery). 2. Endoscopic saphenous vein harvest. PREOPERATIVE DIAGNOSIS: Coronary artery disease. POSTOPERATIVE DIAGNOSIS: Coronary artery disease. ANESTHESIA: General endotracheal anesthesia. ESTIMATED BLOOD LOSS: Total cardiopulmonary bypass with Cell Saver retransfusion and 1 unit platelets. COMPLICATIONS: None. SPECIMENS: None. CONDITION: Stable. DISPOSITION: CV ICU. OPERATIVE FINDINGS: 1. Transesophageal echocardiography with good contractility, 1+ aortic insufficiency, mitral regurgitation, unchanged after coronary artery bypass graft. 2. Thin walled greater saphenous vein somewhat small on the right, so the left side was harvested endoscopically. Multiple small thin spots oversewn with 7-0 Prolenes. 3. Good quality left internal mammary artery. The LAD was a 2.0-mm vessel with diffuse disease. 4. First diagonal 2.0 mm. 5. First obtuse marginal 2.0 mm. 6. Posterior descending artery 2.0 mm. OPERATIVE INDICATION: Coronary artery disease. DESCRIPTION OF PROCEDURE: The patient was brought to the operating suite. General anesthesia was obtained. The patient was prepped and draped. Greater saphenous vein harvested from the left lower extremity utilizing endoscopic technique after first visualizing the right vein. Side branch divided with electrocautery, vessel ligated proximal and distally, removed. Side branches were tied or clipped and thin sites were oversewn. Leg was irrigated and closed in 2 layers. OPERATIVE REPORT [id number] REENA KULKARNI Median sternotomy incision was made. The subcutaneous tissue was divided by electrocautery. Sternum was divided with saw. The left hemisternum was elevated and the pleural cavity was entered. Left internal mammary vein was taken down as pedicle graft. Sternal retractors were placed. Pericardium was opened. Heparin was given. The aorta was cannulated. Dual stage venous cannula was inserted. The internal mammary was clipped distally and made ready for anastomosis. The patient placed in cardiopulmonary bypass. Sites for distal anastomoses were selected. The antegrade cardioplegia cannula was inserted. The patient was cooled. Crossclamp was placed. Cardioplegia given antegrade, repeated at 15-minute intervals including down the completed vein grafts. Distal anastomosis was performed in standard technique. Proximal anastomosis with single cross-clamp technique. Aortic root was de-aired by removing the clamp, de-airing the root, tying the proximal anastomosis, de-airing the vein graft restoring flow. Proximal and distal anastomotic sites inspected for bleeding. A single 6-0 was placed in the proximal. The patient resumed a spontaneous rhythm. Atrial and ventricular pacing wires were placed. The patient was weaned from cardiopulmonary bypass and was stable. The patient was decannulated. Aortic cannulation site had some bleeding requiring 6-0 and pledgeted suture. Protamine was given. Hemostasis was ensured. The graft lay appropriately. Good Doppler signal was noted. Thorough irrigation was undertaken. Drains were placed in the mediastinum and left pleural cavity. The Pericardial fat was loosely reapproximated. The internal mammary harvest site inspected for bleeding. The left chest was evacuated and irrigated. Sternum was closed with wires. Fascia was closed. Subcutaneous tissues were closed. Skin was closed. Dermabond was placed. The needle and sponge counts were reported as correct. The patient was taken to ICU in stable condition. TRANSINT:[id number] Voice Confirmation ID: [id number] DOCUMENT ID: [id number] SIDDHARTH GARNICA MD at 0749 CC: KAYLA BARRIOS M.D. and JEAN SANCHEZ MD [id number] DICTATION DATE: 10/14/19 1445 COLOR MAKER: 10/15/19 0001 ADM IN [facility] [address] [place] [address]
--- NOTE | 2019-10-15 10:02 | NUR ---
0900-DR GARNICA AT BEDSIDE-SPOKE WITH PT REGARDING PLAN-PT UP IN CHAIR AND LETHARGIC-VERBAL DIRECTION TO USE 5MG TAB FOR PAIN MANAGEMENT-PT STATED NOT ABLE TO STAY AWAKE-SR ON MONITOR-PACER WIRE ATTACHED TO PACEMAKER-ON STANDBY-NTG GTT AT 5MCG-CORDARONE AT 0.5MG-NOTED ORDER TO D/C AT 1100H- CHEST TUBES TO 20CM SUCTION-CATHETER TO UROMETER R YOSHI D/C DIRECTED BY DR GARNICA
--- NOTE | 2019-10-15 18:23 | NUR ---
1330-ASSISTED TO CHAIR BY PHYSICAL THERAPY-PT ABLE TO MARCH IN PLACE 1500-REMAINS UP IN CHAIR-STATES HURTS-STATES VERY SLEEPY NOT ABLE TO STAY AWAKE-TYLENOL 650 GIVEN FOR PAIN MANAGEMENT 1730-ASSISTED BACK TO BED PT ABLE TO MOVE EASILY-STATES TYLENOL TABS WERE EFFECTIVE-REMINDED FREQUENTLY TO DO IS-STATES NOT ABLE TO STAY AWAKE-L COBAN REMOVED-ELIEZER AND SCDS PLACED-SR ON MONITOR
--- NOTE | 2019-10-15 19:00 | NUR ---
PT ASSESSMENT COMPLETED AT THIS TIME, NO CHANGES NOTED FROM NURSE REPORT, VSS, PT RESTING JAMEEL EYES CLOSED AWAKES TO NAME, PT ANSWERING QUESTIONS AND FOLLOWING CAMMANDS, PT STATES THAT SHE IS SLEEPY AND HAS SLEPT MOST OF THE DAY. PT RATES PAIN 6/10, NO DISTRESS NOTED, WILL MONITOR FOR CHANGES
--- NOTE | 2019-10-15 20:55 | NUR ---
PT GIVEN PO MEDS AT THIS TIME AND TOOK THEM WITH PROBLEMS, PT C/O NUMBNESS TO RIGHT F/A AND HAND AND NUMBNESS TO LEFT HAND, NO PROBLEMS WITH MOTOR FUNCTION, CAP REFILL <3 SECONDS, HANDS ARE COOL TO TOUCH
--- NOTE | 2019-10-15 23:00 | NUR ---
PT REASSESSMENT COMPLETED AT THIS TIME, PT C/O INCREASED PAIN, NO OTHER CHANGE NOTED, VSS
[2019-10-16] VITALS (24 sets, daily range): BP systolic 100–145; BP diastolic 42–71
--- NOTE | 2019-10-16 01:00 | NUR ---
PT RESTING IN BED WITH EYES CLOSED RESP EVEN AND NON LABORED, VSS
--- NOTE | 2019-10-16 01:50 | NUR ---
PT REQUESTED TO GET UP TO BEDSIDE CHAIR DUE TO HER BACK HURTING, PT WAS ASSISTED UP TO CHAIR NO DISTRESS NOTED
--- NOTE | 2019-10-16 03:00 | NUR ---
REASSESSMENT COMPLETED AT THIS TIME, NO CHANGES NOTED, VSS
--- NOTE | 2019-10-16 04:20 | NUR ---
PT ADVISED THAT SHE DID NOT WANT TO TAKE A BATH RIGHT NOW THAT SHE WAS TAKE ONE LATER TODAY
--- NOTE | 2019-10-16 05:00 | NUR ---
PT RESTING IN CHAIR WITH EYES CLOSED, RESP EVEN AND NON LABORED, VSS
[2019-10-16 06:14] LABS: HEMATOCRIT 28.1 % (36.0-48.0); HEMOGLOBIN 9.2 g/dL (12-16); MCH 30.8 pg (26.0-34.0); MCHC 32.7 g/dL (31.0-37.0); MEAN PLATELET VOLUME 9.6 fL (7.4-10.4); RBC 2.99 10x6/uL (4.00-5.40); RDW 12.6 % (11.5-14.5); WBC 9.6 10x3/uL (4.8-10.8)
[2019-10-16 06:36] LABS: ALBUMIN 3.1 g/dL (3.4-5.0); ALKALINE PHOSPHATASE 40 U/L (46-116); ALT (SGPT) 16 U/L (10-68); BILIRUBIN - TOTAL 0.45 mg/dL (0.2-1.3); CALC OSMOLALITY 275 mosm/kg (275-300); CALCIUM 8.2 mg/dL (8.5-10.1); CARBON DIOXIDE 31.2 mmol/L (21.0-32.0); CHLORIDE - SERUM 104 mmol/L (98-107); CREATININE - SERUM 0.6 mg/dL (0.6-1.3); GLUCOSE 118 mg/dL (74-106); MAGNESIUM - SERUM 2.2 mg/dL (1.8-2.4); POTASSIUM - SERUM 4.2 mmol/L (3.5-5.1); PROTEIN - SERUM 5.9 g/dL (6.4-8.2); SODIUM 138 mmol/L (136-145); UREA NITROGEN 9 mg/dL (7-18); eGFR NON AFRICAN AMERICAN > 90 mL/min (90-120)
[2019-10-16 06:44] LABS: PHOSPHOROUS 1.9 mg/dL (2.5-4.9)
--- NOTE | 2019-10-16 19:00 | NUR ---
PT ASSESSMENT COMPLETED AT THIS TIME, NO CHANGES NOTED FROM NURSE REPORT, NO DISTRESS NOTED, PT AAOX4, VSS, PT GIVEN AND IS AND PERFORMED MULTIPLE TIMES ONLY GETTING 400-500
--- NOTE | 2019-10-16 21:00 | NUR ---
PT GIVEN PM MEDS, NO DISTRESS NOTED, VSS
--- NOTE | 2019-10-16 21:38 | NUR ---
PT EDUCATED ON IS USE, PT ABLE TO GET 550 AT THIS TIME
--- NOTE | 2019-10-16 23:00 | NUR ---
PT REASSESSMENT COMPLETED AT THIS TIME, NO CHANGES NOTED, VSS
[2019-10-17] VITALS (24 sets, daily range): BP systolic 95–165; BP diastolic 42–98
--- NOTE | 2019-10-17 01:00 | NUR ---
PT RESTING WITH EYES CLOSED RESP EVEN AND NON LABORED, NO DISTRESS NOTED, VSS
--- NOTE | 2019-10-17 03:00 | NUR ---
PT REASSESSMENT COMPLETED AT THIS TIME, NO CHANGES NOTED, VSS
--- NOTE | 2019-10-17 05:00 | NUR ---
PT SITTING UP IN CHAIR, NO DISTRESS NOTED, VSS
[2019-10-17 06:04] LABS: HEMATOCRIT 26.4 % (36.0-48.0); HEMOGLOBIN 8.5 g/dL (12-16); MCH 30.5 pg (26.0-34.0); MCHC 32.2 g/dL (31.0-37.0); MCV 94.6 fL (80.0-100.0); MEAN PLATELET VOLUME 9.4 fL (7.4-10.4); RBC 2.79 10x6/uL (4.00-5.40); RDW 12.4 % (11.5-14.5)
[2019-10-17 06:10] LABS: WBC 7.1 10x3/uL (4.8-10.8)
[2019-10-17 06:39] LABS: ALBUMIN 2.8 g/dL (3.4-5.0); ALKALINE PHOSPHATASE 40 U/L (46-116); ALT (SGPT) 15 U/L (10-68); BILIRUBIN - TOTAL 0.41 mg/dL (0.2-1.3); CALC OSMOLALITY 284 mosm/kg (275-300); CALCIUM 8.4 mg/dL (8.5-10.1); CARBON DIOXIDE 30.7 mmol/L (21.0-32.0); CHLORIDE - SERUM 108 mmol/L (98-107); CREATININE - SERUM 0.5 mg/dL (0.6-1.3); GLUCOSE 109 mg/dL (74-106); PHOSPHOROUS 1.8 mg/dL (2.5-4.9); POTASSIUM - SERUM 3.7 mmol/L (3.5-5.1); PROTEIN - SERUM 5.8 g/dL (6.4-8.2); SODIUM 143 mmol/L (136-145); UREA NITROGEN 9 mg/dL (7-18); eGFR NON AFRICAN AMERICAN > 90 mL/min (90-120)
--- NOTE | 2019-10-17 16:17 | MORECARE ---
CASE MANAGEMENT DISCHARGE SUMMARY PATIENT: REENA KULKARNI UNIT: [id number] ADM DATE: 10/14/19 AGE: 59 : 56 SEX: F ROOM/BED: [facility] AUTHOR: HI CUELLAR PHYSICIAN: REFERRING PHYSICIAN: BINDU GARNICA MD DATE OF SERVICE: 10/17/19 Discharge Plan Patient Name: REENA KULKARNI [facility] [facility] 1960 Planned Disposition: Home Anticipated Discharge Date: Discharge Date: Expected LOS: Initial Reviewer: [email or web address] Initial Review Date: 10/14/2019 Generated: 10/17/19 5:17 pm DCPIA - Discharge Planning Initial Assessment Updated by [email or web address]: Faustina Curtis on 10/17/19 4:16 pm * Is the patient Alert and Oriented? Yes * How many steps to enter\exit or inside your home? 4-ramp * PCP SHARI CONWAY * Pharmacy [facility] * Preadmission Environment Home with Family * ADLs Independent * Equipment None * List name and contact numbers for known caregivers / representatives who currently or will assist patient after discharge: JANUARY SHAD - DAUGHTER - [phone] * Verbal permission to speak to the caregivers and representatives has been obtained from the patient. Yes * Community resources currently utilized None * Additional services required to return to the preadmission environment? No * Can the patient safely return to the preadmission environment? Yes * Has this patient been hospitalized within the prior 30 days at any hospital? No Patient Name: REENA KULKARNI Page [id number] at 1617 All edits/amendments must be made on the electronic document DICTATION DATE: 10/17/197 REGRADER: ANABELL 10/17/19 1617 RPT#: [id number] DC DATE: STATUS: ADM IN [facility] [address] [place] [address] END OF REPORT
--- NOTE | 2019-10-17 16:26 | MORECARE ---
CASE MANAGEMENT DISCHARGE SUMMARY PATIENT: REENA KULKARNI UNIT: [id number] ADM DATE: 10/14/19 AGE: 59 : 56 SEX: F [facility] AUTHOR: ALISA,DOC PHYSICIAN: REFERRING PHYSICIAN: BINDU GARNICA MD DATE OF SERVICE: 10/17/19 Discharge Plan Patient Name: REENA KULKARNI Facility: [facility]:[place] : 1960 Planned Disposition: Home Anticipated Discharge Date: Discharge Date: Expected LOS: Initial Reviewer: [email or web address] Initial Review Date: 10/14/2019 Generated: 10/17/19 5:26 pm Comments DCP- Discharge Planning Updated by [email or web address]: Faustina Curtis on 10/17/19 3:[address] LATE ENTRY 10/15/2019 Patient Name: REENA KULKARNI Admission Status: Urgent Accout number: [id number] Admission Date: 10-14-2019 : 1960 Admission Diagnosis: Attending: BINDU GARNICA Current LOS: 1 Anticipated DC Date: Planned Disposition: Home Primary Insurance: [facility] MEDICARE SOLUTIONS Discharge Planning Comments: CM met with patient to complete initial dc planning assessment. CM educated patient on the CM role and verbal consent given by patient to complete assessment. Patient lives at home with her daughter where she is independent with her care. At discharge patient plans to return home and feels this is a safe discharge. CM discussed availability of home health, rehab services, and medical equipment. Her daughter will be her hazmat cdl driver home. Patient denied known discharge needs at this time. CM will continue to follow and will assist as needed with dc plans/needs. [employer] Supervisor: Faustina Curtis DCPIA - Discharge Planning Initial Assessment Updated by [email or web address]: Faustina Curtis on 10/17/19 4:16 pm * Is the patient Alert and Oriented? Yes * How many steps to enter\exit or inside your home? 4-ramp * PCP SHARI CONWAY * Pharmacy [facility] * Preadmission Environment Home with Family * ADLs Independent * Equipment None * List name and contact numbers for known caregivers / representatives who currently or will assist patient after discharge: JANUARY SHAD - DAUGHTER - [phone] * Verbal permission to speak to the caregivers and representatives has been obtained from the patient. Yes * Community resources currently utilized None * Additional services required to return to the preadmission environment? No * Can the patient safely return to the preadmission environment? Yes * Has this patient been hospitalized within the prior 30 days at any hospital? No Last DP export: 10/17/19 3:17 p Patient Name: REENA KULKARNI Page [phone] at 1626 All edits/amendments must be made on the electronic document DICTATION DATE: 10/17/191625 BEADING SAWYER: ANABELL 10/17/191625 RPT#: [id number] DC DATE: STATUS: ADM IN [facility] [address] [place] [address] END OF REPORT
--- NOTE | 2019-10-17 16:35 | NUR ---
1300: IV STARTED L VENTRAL FOREARM WITH 20G ON 2ND ATTEMPT. 1330: R IJ DC'D. MANUAL PRESSURE HELD X 5 MIN. SITE DRESSED WITH 2X2 AND TEGADERM.
[2019-10-17 17:26] LABS: CALC OSMOLALITY 285 mosm/kg (275-300); CALCIUM 8.3 mg/dL (8.5-10.1); CARBON DIOXIDE 31.6 mmol/L (21.0-32.0); CHLORIDE - SERUM 108 mmol/L (98-107); CREATININE - SERUM 0.6 mg/dL (0.6-1.3); GLUCOSE 105 mg/dL (74-106); MAGNESIUM - SERUM 2.1 mg/dL (1.8-2.4); POTASSIUM - SERUM 3.8 mmol/L (3.5-5.1); SODIUM 144 mmol/L (136-145); UREA NITROGEN 10 mg/dL (7-18); eGFR NON AFRICAN AMERICAN > 90 mL/min (90-120)
--- NOTE | 2019-10-17 23:00 | NUR ---
PT REASSESSMENT COMPLETED AT THIS TIME, NO CHANGES NOTED, VSS, NO DISTESS NOTED
[2019-10-18] VITALS (22 sets, daily range): BP systolic 90–149; BP diastolic 42–70
--- NOTE | 2019-10-18 01:00 | NUR ---
PT RESTING WITH EYES CLOSED, VSS, NO DISTRESS NOTED
--- NOTE | 2019-10-18 03:00 | NUR ---
Patient reassessment complete at this time. No changes noted. Vital signs stable, will continue to monitor for changes.
--- NOTE | 2019-10-18 05:00 | NUR ---
Patient resting in bed with eyes closed, no distress noted at this time. Vital signs stable
[2019-10-18 06:31] LABS: HEMATOCRIT 25.8 % (36.0-48.0); HEMOGLOBIN 8.3 g/dL (12-16); MCH 30.3 pg (26.0-34.0); MCHC 32.2 g/dL (31.0-37.0); MCV 94.2 fL (80.0-100.0); MEAN PLATELET VOLUME 9.3 fL (7.4-10.4); RBC 2.74 10x6/uL (4.00-5.40); RDW 12.5 % (11.5-14.5)
[2019-10-18 06:35] LABS: WBC 4.8 10x3/uL (4.8-10.8)
[2019-10-18 06:55] LABS: ALBUMIN 2.5 g/dL (3.4-5.0); ALKALINE PHOSPHATASE 42 U/L (46-116); ALT (SGPT) 17 U/L (10-68); BILIRUBIN - TOTAL 0.36 mg/dL (0.2-1.3); CALC OSMOLALITY 285 mosm/kg (275-300); CALCIUM 8.1 mg/dL (8.5-10.1); CARBON DIOXIDE 31.7 mmol/L (21.0-32.0); CHLORIDE - SERUM 108 mmol/L (98-107); CREATININE - SERUM 0.6 mg/dL (0.6-1.3); GLUCOSE 96 mg/dL (74-106); MAGNESIUM - SERUM 1.8 mg/dL (1.8-2.4); PHOSPHOROUS 2.5 mg/dL (2.5-4.9); POTASSIUM - SERUM 3.4 mmol/L (3.5-5.1); PROTEIN - SERUM 5.5 g/dL (6.4-8.2); SODIUM 144 mmol/L (136-145); UREA NITROGEN 11 mg/dL (7-18); eGFR NON AFRICAN AMERICAN > 90 mL/min (90-120)
--- NOTE | 2019-10-18 07:00 | NUR ---
REPORT RECEVIED FROM THE OFF GOING RN. SEE ASSESSMENT IN THE PTS FLOW SHEET. PT SITTING OOB IN HER BEDSIDE CHAIR. NSR ON THE MONITOR. VSS. PT DENIES PAIN AT THIS TIME. MIDSTERNAL AND SUBSTERNAL DRESSING C/D/I. JOSEPH DRAIN NOTED WITH SEROUS DRAINAGE NTOED. 60 CC EMPITED FROM DRAIN. PT DEMINISHED LUNGS SOUNDS IN BASES. PT INSTRUCTED TO USE HER IS 10X'S/H. PT ONLY PULLS ABOUT 500. BREAKFAST TRAY PROVIDED FOR THE PT. CALL LIGHT IN REACH. [facility].
--- NOTE | 2019-10-18 09:39 | NUR ---
PT AMBULATED WITH PHYSICAL THEARPY 500 FEET WITH A WALKER WITH A STEADY GAIT. 30 CC EMPITED FROM JOSEPH DRAIN. SUSAN RN NOTIFIED. WILL CONT POC.
--- NOTE | 2019-10-18 10:17 | NUR ---
OK TO DC JOSEPH DRAIN.
--- NOTE | 2019-10-18 11:21 | NUR ---
Nutrition Follow-up: POD 4 CABG. Appetite improving. Diet: Regular PO intake: 50-75% Wt: 191.8# (10/18); 181# (10/15) Last BM: 10/18 Labs noted: K+ 3.4, Ca 8.1, Alb 2.5 Meds noted: Senokot, Colace, KDur -Change to cardiac diet. -RD following.
--- NOTE | 2019-10-18 12:50 | NUR ---
DR GARNICA AT THE PTS BEDSIDE.
--- NOTE | 2019-10-18 19:15 | NUR ---
REC'D TO CARE, FIRER LOCOMOTIVE PER FLOWSHEET. PT UP IN CHAIR. VSS. SKIN/INCISIONS PER FLOWSHEET. PT DENIES NEEDS. C/L IN REACH.
--- NOTE | 2019-10-18 19:41 | NUR ---
PT WATCHING TV, VSS. REQUESTS "PAIN PILL" - ADMIN PRN PERCOCET - SEE EMAR.
--- NOTE | 2019-10-18 21:23 | NUR ---
PO MEDS GIVEN PER MD ORDERS. BOTTOM DENTURES IN CUP WITH WATER.
--- NOTE | 2019-10-18 23:00 | NUR ---
REASSESSMENT PER FLOWSHEET, NO ACUTE CHANGES. RESTING QUIETLY WITH EYES CLOSED, VSS. C/L IN REACH.
[2019-10-19] VITALS (21 sets, daily range): BP systolic 98–166; BP diastolic 42–73
--- NOTE | 2019-10-19 01:15 | NUR ---
RESTING WITH EYES CLOSED, VSS. C/L IN REACH.
--- NOTE | 2019-10-19 03:07 | NUR ---
REASSESSMENT PER FLOWSHEET, NO ACUTE CHANGES. VSS. AWAKENS EASILY. ALARMS ON AND C/L IN REACH.
--- NOTE | 2019-10-19 06:17 | NUR ---
PT UP TO BR, AM CARE SUPPLIES PROVIDED, PT INDEPENDENT WITH TOILETING AND BATHING.
[2019-10-19 06:24] LABS: HEMOGLOBIN 8.3 g/dL (12-16); MCH 30.1 pg (26.0-34.0); MCHC 31.9 g/dL (31.0-37.0); MCV 94.2 fL (80.0-100.0); RBC 2.76 10x6/uL (4.00-5.40); RDW 12.7 % (11.5-14.5)
[2019-10-19 06:56] LABS: ALBUMIN 2.4 g/dL (3.4-5.0); ALKALINE PHOSPHATASE 44 U/L (46-116); ALT (SGPT) 15 U/L (10-68); BILIRUBIN - TOTAL 0.39 mg/dL (0.2-1.3); CALC OSMOLALITY 288 mosm/kg (275-300); CARBON DIOXIDE 31.5 mmol/L (21.0-32.0); CHLORIDE - SERUM 111 mmol/L (98-107); CREATININE - SERUM 0.6 mg/dL (0.6-1.3); GLUCOSE 94 mg/dL (74-106); PROTEIN - SERUM 5.4 g/dL (6.4-8.2); SODIUM 145 mmol/L (136-145); UREA NITROGEN 12 mg/dL (7-18); eGFR NON AFRICAN AMERICAN > 90 mL/min (90-120)
--- NOTE | 2019-10-19 07:00 | NUR ---
REPORT RECEVIED FROM THE OFF GOING RN. SEE ASSESSMENT IN THE PTS FLOW SHEET. PT DENIES NEEDS AT THIS TIME. PT SITTING OOB IN HER BEDSIDE CHAIR WITH STABLE VITAL SIGNS. MIDSTERNAL AND SUBSTERNAL INCISIONS DRESSING C/D/I. INSTRUCTED THE PT TO USE HER IS 10X'S/H. PT PULLING ABOUT 500 AND SOMETMIES 750. WILL ENCOURAGE THROUGHT THE DAY. CALL LIGHT IN REACH. WILLC ONT POC.
[2019-10-19 07:06] LABS: PHOSPHOROUS 3.3 mg/dL (2.5-4.9); POTASSIUM - SERUM 4.2 mmol/L (3.5-5.1)
--- NOTE | 2019-10-19 08:00 | NUR ---
BREAKFAST TRAY PROVIDED FOR THE PT. CALL LIGHT IN REACH. WILL CONT POC.
--- NOTE | 2019-10-19 09:42 | NUR ---
DR MORA AT THE PTS BEDSIDE.
--- NOTE | 2019-10-19 11:00 | NUR ---
REASSESSMENT COMPLTED. SEE FLOW SHEET. PT VSS. WILL CONT POC.
--- NOTE | 2019-10-19 15:00 | NUR ---
REASSESEMENT COMPLETED. SEE FLOW SHET. WILL CONT POC.
--- NOTE | 2019-10-19 17:34 | NUR ---
PT REFUSING DINNER AT THIS TIME. PT REQUESTED TO TAKE A NAP INSTEAD. DINNER TRAY SET ASIDE FOR WHENEVER SHE IS READY. CALL LIGHT IN REACH. WILL CONT POC.
--- NOTE | 2019-10-19 19:05 | NUR ---
ORAL CARE DONE WITH PERIDEX
--- NOTE | 2019-10-19 20:00 | NUR ---
PT AT BEDSIDE. NO SIGN OF DISTESS. VSS. DENIES NEEDS
--- NOTE | 2019-10-19 22:30 | NUR ---
OOB TO RESTROOM. STEADY ON HER FEET AND INDEPENDENT.
[2019-10-20] VITALS (11 sets, daily range): BP systolic 97–134; BP diastolic 34–72
--- NOTE | 2019-10-20 04:30 | NUR ---
RESTING QUIETLY, AWAKENS EASILY. DENIES NEEDS.
--- NOTE | 2019-10-20 07:49 | NUR ---
REPORT RECEVIED FROM THE OFF GOING RN. SEE ASSESSMENT IN THE PTS FLOW SHEET. NSR ON THE MONITOR. PT ASSISTED OOB AND INTO THE BEDSIDE CHAIR. PT TRANSFERED WELL. INSTRUCTED THE PT TO USE HER IS 10X'S/H. PT PULLS ABOUT 500 ON HER IS. DRESSINGS TO MIDSTERNAL AND SUBSTERANL C/D/I. PT DENIES PAIN AT THIS TIME. BREAKFAST TRAY AND FRESH WATER PROVIDED. CALL LIGHT IN REACH. WILL CONT POC.
[2019-10-20] MEDS ORDERED: AMIODARONE HCL200 MG PO (08:27)
[2019-10-20] MEDS ORDERED: LOPRESSOR25 MG PO (08:30)
[2019-10-20] MEDS ORDERED: ASPIRIN EC81 M1 PO (08:32)
--- NOTE | 2019-10-20 10:04 | NUR ---
DR GARNICA AT THE PTS BEDSIDE. DC ORDERS HOME. DR GARNICA PULLED OUT TPM WIRES. PT TOLERATED WELL. WILL CONT POC.
--- NOTE | 2019-10-20 10:48 | NUR ---
PT LEFT VIA WC DOWNSTAIRS FOR PA AND LAT.
--- NOTE | 2019-10-20 11:05 | NUR ---
PT BACK FROM XRAY.
--- NOTE | 2019-10-20 12:04 | NUR ---
PIV DC'D WITH THE CATHETER TIP INTACT. DISCHARGE INSTRUCTIONS WENT OVER WITH THE PT. PT LEFT IN A STABLE CONDITION.
--- NOTE | 2019-10-20 14:01 | MORECARE ---
CASE MANAGEMENT DISCHARGE SUMMARY PATIENT: REENA KULKARNI UNIT: [id number] ADM DATE: 10/14/19 AGE: 59 : 56 SEX: F [facility] AUTHOR: ALISA,HI PHYSICIAN: REFERRING PHYSICIAN: BINDU GARNICA MD DATE OF SERVICE: 10/20/19 Discharge Plan Patient Name: REENA KULKARNI Facility: [facility]:[place] : 1960 Planned Disposition: Home Anticipated Discharge Date: Discharge Date: 10/20/2019 Expected LOS: Initial Reviewer: [email or web address] Initial Review Date: 10/14/2019 Generated: 10/20/19 3:01 pm Comments DCP- Discharge Planning Updated by [id number]: Faustina Curtis on 10/20/19 12:[address] Patient Name: REENA KULKARNI Encounter No: [id number] : 1960 Primary Insurance: C MEDICARE SOLUTIONS Anticipated DC Date: Planned Disposition: Home External Planned Provider: : D/Richard IMM SIGNED 10/20/2019 @ 1005 DCP follow-up note: Patient and family in agreement with discharge plan. No changes to plan. Case management will follow and assist as needed. Faustina Curtis DCP- Discharge Planning Updated by [id number]: Faustina Curtis on 10/17/19 3:[address] LATE ENTRY 10/15/2019 Patient Name: REENA KULKARNI Admission Status: Urgent Accout number: [id number] Admission Date: 10-14-2019 : 1960 Admission Diagnosis: Attending: BINDU GARNICA Current LOS: 1 Anticipated DC Date: Planned Disposition: Home Primary Insurance: [facility] MEDICARE SOLUTIONS Discharge Planning Comments: CM met with patient to complete initial dc planning assessment. CM educated patient on the CM role and verbal consent given by patient to complete assessment. Patient lives at home with her daughter where she is independent with her care. At discharge patient plans to return home and feels this is a safe discharge. CM discussed availability of home health, rehab services, and medical equipment. Her daughter will be her refuse driver home. Patient denied known discharge needs at this time. CM will continue to follow and will assist as needed with dc plans/needs. Sales Producer: Faustina Curtis DCPIA - Discharge Planning Initial Assessment Updated by [email or web address]: Faustina Curtis on 10/17/19 4:16 pm * Is the patient Alert and Oriented? Yes * How many steps to enter\exit or inside your home? 4-ramp * PCP SHARI CONWAY * Pharmacy [facility] * Preadmission Environment Home with Family * ADLs Independent * Equipment None * List name and contact numbers for known caregivers / representatives who currently or will assist patient after discharge: JANUARY SHAD - ALO - [phone] * Verbal permission to speak to the caregivers and representatives has been obtained from the patient. Yes * Community resources currently utilized None * Additional services required to return to the preadmission environment? No * Can the patient safely return to the preadmission environment? Yes * Has this patient been hospitalized within the prior 30 days at any hospital? No Coverage Notice Reviewer: [email or web address] - Faustina Curtis Notice Issued Date-Time: 10/20/2019 10:05 Notice Type: IM Discharge Notice Notice Delivered To: Patient Relationship to Patient: [employer] Assistant Name: Delivery Method: HAND - Hand Delivered Natasha Days: Prior Verbal Notification: Recipient Understood Notice: Yes Recipient Signature: Yes Med Rec Note Co-signed by Attending: Coverage Notice Comment: Last DP export: 10/17/19 3:26 p Patient Name: REENA KULKARNI Page [phone] at 1401 All edits/amendments must be made on the electronic document DICTATION DATE: 10/20/19 1401 PATIENT NAVIGATOR: ANABELL 10/20/19 1401 RPT#: [id number] DC DATE:10/20/19 STATUS: DIS IN [facility] [address] [place] [address] END OF REPORT
== END 2019-10-20 12:05 | disposition home or self-care (01) | DRG 236 ==
LOC: D.SDCHOLD 09:00 → D.CVICU 10-14 05:00 → D.SDCHOLD 10-14 05:00 → D.CVICU 10-14 12:28
PROVIDERS: Family Medicine; ADMIT Thoracic Surgery (Cardiothoracic Vascular Surgery); ATTEND Thoracic Surgery (Cardiothoracic Vascular Surgery)
PROC: 021209W Bypass Coronary Artery, Three Arteries from Aorta with Autologous Venous Tissue, Open Approach (ICD-10-PCS; 2019-10-14)
PROC: 06BP4ZZ Excision of Right Saphenous Vein, Percutaneous Endoscopic Approach (ICD-10-PCS; 2019-10-14)
PROC: 5A1221Z Performance of Cardiac Output, Continuous (ICD-10-PCS; 2019-10-14)
PROC: B24BZZ4 Ultrasonography of Heart with Aorta, Transesophageal (ICD-10-PCS; 2019-10-14)
PROC: 02100Z9 Bypass Coronary Artery, One Artery from Left Internal Mammary, Open Approach (ICD-10-PCS; principal; 2019-10-14 07:30)
DX: I25.10 Atherosclerotic heart disease of native coronary artery without angina pectoris (principal); D62 Acute posthemorrhagic anemia; I10 Essential (primary) hypertension; E78.5 Hyperlipidemia, unspecified; M19.90 Unspecified osteoarthritis, unspecified site; K21.9 Gastro-esophageal reflux disease without esophagitis; F32.9 Major depressive disorder, single episode, unspecified; G89.29 Other chronic pain; R42 Dizziness and giddiness; I69.30 Unspecified sequelae of cerebral infarction